=== PATIENT | female | born 1945 | race Caucasian/White ===

== ENCOUNTER → 2023-08-16 14:28 | Outpatient (REF) | payer MEDICARE, OTHER, SELFPAY | LOC: WOUND 14:28 | PROVIDERS: ATTENDING PHYSICIAN Surgery; REFERRING PHYSICIAN Internal Medicine | DX: L89.610 Pressure ulcer of right heel, unstageable (principal); L89.322 Pressure ulcer of left buttock, stage 2; G30.9 Alzheimer's disease, unspecified; F02.80 Dementia in other diseases classified elsewhere, unspecified severity, without behavioral disturbance, psychotic disturbance, mood disturbance, and anxiety; G20 Parkinson's disease | CPT/HCPCS: 11042; 11043; 97597 ==